=== PATIENT | female | born 1990 | race Caucasian/White ===

== ENCOUNTER → 2017-02-01 | Outpatient (CLI) | payer BC, OTHER ==
[~2017-02-01] VITALS: Ht 165.1 cm; Wt 81.0 kg
[~2017-02-01] MED LIST: ATARAX,VISTARIL25 MG PO; ATARAX10 MG PO; COLACE100 MG PO; ENDOCET 5-3251 EACH PO; FLEXERIL10 MG PO; IRON325 M1 PO; MOTRIN800 MG PO; Motrin PO; NAPROSYN500 MG PO; NOHOMEMEDS; PERCOCET 5/31 TABLET PO; PREDNISONE10 MG PO; PRENATAL TABLE1 EAC3 PO; ZANTAC150 MG PO; ZANTAC75 M1 PO; ZEBUTAL 50-3251 EACH PO
[2017-02-01 09:55] VITALS: BP 130/59
== END | disposition home or self-care (01) ==
LOC: IVINF 09:30
DX: Z31.82 Encounter for Rh incompatibility status (principal); Z3A.28 28 weeks gestation of pregnancy; Z67.41 Type O blood, Rh negative
CPT/HCPCS: 96372; J2790

== ENCOUNTER 2017-03-27 05:26 | Inpatient (IN) | payer BC, OTHER ==
[~2017-03-27] VITALS: Ht 165.1 cm; Wt 86.0 kg
[2017-03-27 05:39] VITALS: BP 111/78
[2017-03-27] MEDS ORDERED: MOTRIN800 MG PO (07:33)
[2017-03-27] MEDS ORDERED: PERCOCET 5/31 TABLET PO (07:33)
[2017-03-27 10:48] VITALS: BP 128/85
[2017-03-27 12:06] VITALS: BP 140/77
[2017-03-27 13:57] VITALS: BP 127/78
[2017-03-27 16:02] VITALS: BP 119/81
[2017-03-27 18:06] VITALS: BP 127/86
[2017-03-28 02:35] VITALS: BP 119/63
[2017-03-28 08:43] LABS: EOSINOPHIL (%) 0.4 % (0-5); HEMATOCRIT 24.3 % (36.0-46.0); IMMATURE GRANULOCYTE (%) 0.4 % (0.0-0.7); INSTRUMENT ABS NEUTROPHIL CT 6.6 K/uL; LYMPHOCYTE COUNT 1.4 K/uL (1.0-2.8); MCH 30.2 PG (29.0-34.0); MCHC 33.3 G/DL (30.0-36.0); MCV 90.7 FL (83-99); MEAN PLAT.VOLUME 9.1 uM^3 (9.5-12.4); MONOCYTE (%) 5.3 % (3-12); MONOCYTE COUNT 0.5 K/uL (0-0.8); NEUTROPHIL (%) 77.7 % (45-76); NEUTROPHIL COUNT 6.6 K/uL (1.8-6.4); PLATELET COUNT 153 K/uL (156-360); RBC DIS.WIDTH-SD 41.9 % (39-53); WHITE BLOOD COUNT 8.4 K/uL (4.1-10.2)
[2017-03-28 08:47] LABS: RED BLOOD COUNT 2.68 M/uL (3.80-5.20)
[2017-03-28 11:50] VITALS: BP 130/89
[2017-03-29 07:26] VITALS: BP 130/79
[2017-03-29 15:26] VITALS: BP 125/96
[2017-03-30] MEDS ORDERED: DOCUSATE SODIU100 MG PO (09:03)
[2017-03-30] MEDS ORDERED: ENDOCET 5-3251 EACH PO (09:03)
[2017-03-30] MEDS ORDERED: IBUPROFEN800 MG PO (09:03)
== END 2017-03-30 19:25 | disposition home or self-care (01) | DRG 765 ==
LOC: 2SOUTH → 2WEST 05:26 → 2SOUTH 12:15 → 2WEST 03-30 19:25
PROVIDERS: Obstetrics & Gynecology
DX: O44.03 Complete placenta previa NOS or without hemorrhage, third trimester (principal); Z30.2 Encounter for sterilization; O75.89 Other specified complications of labor and delivery; O34.211 Maternal care for low transverse scar from previous cesarean delivery; O99.354 Diseases of the nervous system complicating childbirth; G43.909 Migraine, unspecified, not intractable, without status migrainosus; O99.62 Diseases of the digestive system complicating childbirth; K21.9 Gastro-esophageal reflux disease without esophagitis; O99.02 Anemia complicating childbirth; D50.9 Iron deficiency anemia, unspecified; O87.4 Varicose veins of lower extremity in the puerperium; Z23 Encounter for immunization; Z3A.36 36 weeks gestation of pregnancy; Z37.0 Single live birth
CPT/HCPCS: 36415; 83030; 85025; 85025 91; 86850; 86870; 86900; 86901; 86920; 86999; 88302; 88307; 90686; J0131; J0690; J1170; J1885; J2250; J2274; J2405; J2790; J3010; J7120